=== PATIENT | male | born 1970 | race Caucasian/White ===

== ENCOUNTER 2022-03-13 18:55 | Observation (INO) | payer OTHER ==
[2022-03-13 21:53] VITALS: BMI 36.6
[2022-03-13] MEDS: NA CHLORIDE 0.9% 1,000 ML IV SCH (22:00)
[2022-03-13] MEDS ORDERED: NA CHLORIDE 0.9% 1,000 ML ONE (22:03)
[2022-03-14 03:52] LABS: Absolute Lymphocytes (CBC) 2.4 K/uL (0.7-4.9); Hematocrit 47.6 % (39.6-49.0); Lymphocytes % 29.4 % (15.3-44.8); MCV 84.7 fL (80-100); MPV 9.4 fL (7.6-11.3); RBC Red Blood Cell Count 5.62 M/uL (4.33-5.43)
[2022-03-14 04:01] LABS: Potassium 3.7 mmol/L (3.5-5.1)
[2022-03-14] MEDS ORDERED: Ringers Lactate 1,000 ML IV ONE (08:13)
[2022-03-14] MEDS ORDERED: CIPROFLOXACIN 400mg IV 400 MG/200 ML BAG IV ONE (08:13)
[2022-03-14] MEDS ORDERED: MIDAZOLAM HCL 2 MG/2 ML INJ ONE (09:10)
[2022-03-14] MEDS ORDERED: LIDOCAINE 1% MPF 5 ML VIAL ONE (09:10)
[2022-03-14] MEDS ORDERED: ROCURONIUM 50 MG/5 ML VIAL IV ONE (09:10)
[2022-03-14] MEDS ORDERED: propofoL 200 MG/20 ML VIAL IV ONE (09:10)
[2022-03-14] MEDS ORDERED: FENTANYL CITR 100 MCG/2 ML ONE ×2 (09:10→09:34)
[2022-03-14] MEDS ORDERED: SUCCINYLCHOLINE 20 MG/ML (10 ML) IV ONE (09:13)
[2022-03-14] MEDS ORDERED: KETOROLAC 30 MG/ML INJ ONE (09:34)
[2022-03-14] MEDS ORDERED: dexAMETHasone 10 MG/ML VIAL ONE (09:34)
[2022-03-14] MEDS ORDERED: NEOSTIGMINE 1 MG/ML -10 ML VIAL ONE (09:35)
[2022-03-14] MEDS ORDERED: GLYCOPYRROLATE 0.2 MG/ML SYR ONE (09:35)
[2022-03-14] MEDS ORDERED: ONDANSETRON 4 MG/2 ML VIAL ONE (09:40)
--- NOTE | 2022-03-14 09:40 | HP ---
Date of Admission: 03/13/2022 Reason For Service: Lower abdominal pain, appendicitis. History Of Present Illness: This is the case of a male, who comes to the hospital overnight, danial [place] from [place] ER with diagnosis of appendicitis. The patient's story is he was having left hip pain and lower abdominal pain. He thought it was his hip. His orthopedic doctor does not to hips an ymore. He normally takes injection for his knees and his shoulder, so he went to the ER trying to se e if they can do that for him. During the process since the lower abdominal pain, they did a CAT sca n of the abdomen and pelvis showing finding of appendicitis without perforation. He has lower abdomi nal pain. We have been working on him for the last several weeks. At the beginning, he thought he m ight have a hernia, but the CAT scan did not show that, but at this moment, there is some appendiceal mucosal thickening even though he did not have any symptoms of appendicitis at that moment. I advis ed him even though he comes to us for hernia that he may need a diagnostic laparoscopy and he needs t o do his colonoscopies that he has not done yet and if he does not do diagnostic labs, at least he heard s to let us repeat that CT scan, so he took advantage of this and even though he was booked for [facility] er CT scan than he had one visit from yesterday when he had a CAT scan done, once again confirmed the re are some appendiceal changes. He has no WBC count, but it was significant enough to at least I apryl quinonez receive a call from the ER for transfer and appendectomy. His symptoms have been like that of ac he for the last 12 weeks, lower abdominal pain of unknown origin. There is no dysuria, hematuria, he matochezia, melena. There is no recent traveling out of the country. There is no family member sick at home. There is no change in bowel habits. There is no vomiting. Past Medical History: Includes shoulder pain and knee pain, medical history of hypertension. PCP is Kayden Vernon. Allergies: NONE. Social History: He does not smoke, he does not drink alcohol. Family History: Noncontributory. Review of Systems: See H and P. Ten points otherwise unremarkable. Physical Examination: HEENT: Pupils are reactive. Anicteric. Neck: Supple. Chest: Clear. Abdomen: Lower abdominal pain is generalized. It is right and left. No rebound tenderness. No per itonitis at this moment. The ER since I talked to them previously described also periumbilical pain, although it is slightly better today. Laboratory Data: A blood work of [place] [facility] was reviewed showing sodium 141, chloride is 105, gluco se 92. White blood cell count was normal. He had an x-ray of the left hip shows just mild left hip degeneration. He has a CAT scan of the abdomen and pelvis that was described as status post partial gastrectomy, gastric sleeve. The rest of the findings are consistent with appendicitis with dilated appendix. Assessment: He is a -bdpx-ofy patient with lower abdominal pain and also hip pain. When akilah hayes came to the ER in [place], he has periumbilical pain going to the lower abdomen. They did a CAT s can shows appendicitis and we have once again a previous CT scan showing several weeks ago some thick ening of the appendix, although at that moment there is no acute appendicitis, but he was offered a d iagnostic lap. He was going to repeat the CAT scan once again in the next few days, but he decided t o go to the ER for a hip problem. They will need a CAT scan once again they found abnormalities in t he appendix, they believe it could be acute appendicitis and a transfer was requested for surgical in [facility]. I discussed to the patient the options of diagnostic laparoscopy. He has not had any co lonoscopy done yet. He must have that in the near future since he has already passed 48 years old. At this moment, he still has some tenderness in the lower abdomen, although he does have peritonitis. A CAT scan shows acute appendicitis. So, he has the option of diagnostic laparoscopic possible ope n appendectomy with benefits, alternatives, and risks, including, but not limited to infection, bleed ing, damage to adjacent structures, anesthesia complication, negative appendix, CA, and even . He understands this may not relieve any symptoms. He might need more than one surgical intervention. He understood and he wants to have this done during this admission. This will not effect his pain and this will not moss bstitute his colonoscopy. BRYCE/MAIDA Voice ID: [id number]
[2022-03-14] MEDS ORDERED: EPHEDRINE SULF 50 MG/ML VIAL ONE (09:57)
--- NOTE | 2022-03-14 10:15 | P.BOP ---
Preoperative diagnosis: acute appendicitis Postoperative diagnosis: same Primary procedure: Laparoscopic appendectomy Typewriter Aligner: LORENE HERNÁNDEZ (MANAGER CONTENT) Estimated blood loss: <10cc Specimen: ephraim Findings: inflammed appendix Anesthesia: General Complications: None Transferred to: Recovery Room Condition: Good
[2022-03-14] MEDS ORDERED: HYDROCODONE/APAP 5/325 MG TAB PO PRN (10:21)
[2022-03-14] MEDS ORDERED: MORPHINE 2 MG/ML SYR IV PRN (10:21)
[2022-03-14] MEDS: HYDROMORPHONE HCL 1 MG/ML INJ ONE ×2 (10:35→10:40)
[2022-03-14] MEDS ORDERED: PROMETHAZINE INJ 25 MG/ML AMP ONE (10:48)
[2022-03-14] MEDS ORDERED: HYDROMORPHONE HCL 1 MG/ML INJ ONE (10:53)
--- NOTE | 2022-03-14 12:18 | OP ---
Date of Procedure: 03/14/2022 Surgeon: Kane Luna MD Senior Benefits Manager: Lilly Arrington. Preoperative Diagnoses: Acute appendicitis, abdominal pain. Postoperative Diagnoses: Acute appendicitis, abdominal pain. Procedure: Laparoscopic appendectomy. Estimated Blood Loss: Less than 10 mL. Specimens: Appendix. Finding: Inflamed, asymmetrical in shape and color appendix. Anesthesia: General plus local. Complications: None. Indication: This is the case of a 52-year-old patient, who comes to us with abdominal pain, diagnose d on imaging also with acute appendicitis. The benefits, alternatives, and risks of a laparoscopic p ossible open appendectomy fully explained, which include, but not limited to infection, bleeding, dam age to adjacent structures, anesthesia complication, SC, and even . He also understands this ma y not relieve any symptoms. He might need more than one surgical intervention. He understood, jacqueline d a consent. Procedure In Detail: The patient was brought to the operating room, placed in supine position. Anes thesia was done without complication. Abdominal area was prepped and draped in the usual sterile fas hion. Marcaine 0.5% was injected for local anesthetic followed by sharp incision of the skin in the infraumbilical region. Incision was carried down to fascia, which was opened under direct vision. P eritoneum was encountered, opened under direct vision. Vicryl #1 placed inside the fascia. Sukhwinder t rocar was carefully introduced. Pneumoperitoneum was obtained. After that, I placed 2 more trocars, 5 mm each one of them, 1 in the suprapubic area, another 1 in the left lower quadrant using same christopher hnique under direct visualization. This allowed me to visualize the area of the abdomen and we proce eded with diagnostic laparoscopy. We noticed intraabdominal adhesions from previous surgeries, but a lso we noticed to have an abnormal appendix as described on the CT scan. Even though he has normal W BC count and has no peritonitis, the appendix shows to be asymmetrical in shape and color, large, thi ck, although seems not to be attached to any other structures other than the cecum. The base of the appendix seems to be spared from that, so we created a window in the base of the appendix, transected that with Endo DEBI 45 mm thick and then the mesoappendix with Endo DEBI 45 mm vascular sequentially. Further hemostasis was obtained with the help of hemoclips. The appendix removed from abdominal cav ity using an EndoCatch through the umbilical incision. The area was inspected once again. No bile l eak. No bleeding. The rest of the abdomen shows no inguinal hernias are present, the pelvic with no masses seen. The upper abdomen where the stomach too many adhesions in that area and the pain has never been in that region, so there is not a concern at this moment. The area of the adhes ions removed from the periumbilical region and was also inspected with no bleeding. At that moment, I proceeded to remove the trocars under direct vision. Before that, ascending, transverse, and desce nding colon with no masses seen, at least extraluminal. Liver with no masses seen, at least extralum inal. At that moment, I proceeded to remove the trocars under direct vision. Deflated pneumoperiton eum. Closed the fascia with #1 Vicryl. Irrigated subcutaneous tissue, closed that with 3-0 chromic and the skin in a subcuticular fashion with 3-0 chromic and Steri-Strips on top. Sponge count, instr ument counts correct. The patient tolerated the procedure well. The patient was sent to recovery in stable condition. If this patient tolerates lunch and dinner, we may be able to send him home on p. o. antibiotics. Follow up in my office in 1 week. Call for appointment at [phone]. No heavy lifti ng and keep area dry for 48 hours. BRYCE/MAIDA Voice ID: [id number] Report ID: [id number]
[2022-03-14] MEDS: NA CHLORIDE 0.9% 1,000 ML IV SCH (12:28)
[2022-03-14 12:46] VITALS: O2SAT 95
[2022-03-14] MEDS ORDERED: TAMSULOSIN 0.4 MG SR CAP PO ONE (18:00)
[2022-03-14] MEDS ORDERED: CIPROFLOXACIN 400mg IV 400 MG/200 ML BAG IV SCH (21:00)
[2022-03-14 21:55] VITALS: BP 130/85; TEMP 98
== END 2022-03-14 20:35 | disposition home or self-care (01) ==
LOC: 2ND 20:52 → INTOOBSV 20:52
PROVIDERS: ADMIT Surgery; ATTEND Surgery
PROC: 0DTJ4ZZ Resection of Appendix, Percutaneous Endoscopic Approach (ICD-10-PCS; principal; 2022-03-14 09:45)
DX: K35.80 Unspecified acute appendicitis (principal); M25.552 Pain in left hip; I10 Essential (primary) hypertension; M25.519 Pain in unspecified shoulder; M25.569 Pain in unspecified knee; Z98.84 Bariatric surgery status
CPT/HCPCS: 36415; 80048; 85025; 88304; 94010; G0378; G0379; J0330; J0744; J1100; J1170; J2250; J2405; J2550; J2704; J2710; J3010; J7030; J7120

== ENCOUNTER 2022-06-04 09:17 | Day surgery (SDC) | payer OTHER ==
[2022-06-04] MEDS ORDERED: Ringers Lactate 1,000 ML IV ONE (09:34)
[2022-06-04] MEDS ORDERED: propofoL 200 MG/20 ML VIAL IV ONE (11:06)
[2022-06-04] MEDS ORDERED: LIDOCAINE 1% MPF 5 ML VIAL ONE (11:06)
--- NOTE | 2022-06-04 12:41 | ENDO RPT ---
[address], [address] COLONOSCOPY PROCEDURE REPORT EXAM DATE: 06/04/2022 PATIENT NAME: Wilmer Ashley MR #: [id number] BIRTHDATE: 1970 ATTENDING: Kane Luna MD STATUS: outpatient CARE ASSOCIATE: Kita Dale RN and Rand Henley INDICATIONS: The patient is a 52 yr old Male here for a colonoscopy due to colon cancer screening PROCEDURE PERFORMED: Colonoscopy with biopsy - cold polypectomy MEDICATIONS: Per Anesthesia. ESTIMATED BLOOD LOSS: None CONSENT: The patient understands the risks and benefits of the procedure and understands that these risks include, but are not limited to: sedation, allergic reaction, infection, perforation and/or bleeding. Alternative means of evaluation and treatment include, among others: physical exam, x-rays, and/or surgical intervention. The patient elects to proceed with this endoscopic procedure. DESCRIPTION OF PROCEDURE: During intra-op preparation period all mechanical medical equipment was checked for proper function. Hand hygiene and appropriate measures for infection prevention was taken. Procedure, possible complications, alternatives including, but not limited to possibility of bleeding, perforation, tear, infection, sepsis, need for surgery, need for blood transfusion, were explained to the patient. After the risks, benefits and alternatives of the procedure were thoroughly explained, Informed consent was verified, confirmed and timeout was successfully executed by the treatment team. The patient was placed in the left lateral position. A digital rectal exam was performed and revealed hemorrhoids. After appropriate level of anesthesia, the scope was passed. The EC-[id number] ([id number]) endoscope was introduced through the anus and advanced to the cecum, which was identified by the ileocecal valve. The quality of the prep was good. The instrument was then slowly withdrawn as the colon was fully examined. Scope withdrawal time was . COLON FINDINGS: Moderate sized internal and external hemorrhoids were found. Diverticula was found throughout the entire examined colon. The opening was small. Two sessile polyps were found at approximately 18cm and 25cm from anal verge less than 0.3cm in size.. Retroflexed views revealed no abnormalities. The scope was then completely withdrawn from the patient and the procedure terminated. ADVERSE EVENTS: There were no complications. IMPRESSIONS: 1. Moderate sized internal and external hemorrhoids 2. Diverticula throughout the entire examined colon 3. Two sessile polyps were found; polypectomy was performed in a piecemeal fashion using hot forceps RECOMMENDATIONS: 1. await biopsy results 2. follow-up: office 1 week(s) 3. hemorrhoidal hygiene 4. no seeds in diet RECALL: for Colonoscopy, pending biopsy results. Kane Luna MD eSigned: Kane Luna MD 06/04/2022 12:40 PM cc: Vimal Vernon M.D. CPT CODES: ICD9 CODES: PATIENT NAME: Wilmer Ashley MR#: [id number]
[2022-06-04 13:30] VITALS: BP 135/76; TEMP 97; O2SAT 99
== END 2022-06-04 13:06 | disposition home or self-care (01) ==
LOC: OR 09:17
PROVIDERS: ATTEND Surgery
PROC: 0DBN8ZX Excision of Sigmoid Colon, Via Natural or Artificial Opening Endoscopic, Diagnostic (ICD-10-PCS; principal; 2022-06-04 11:30)
DX: Z12.11 Encounter for screening for malignant neoplasm of colon (principal); I10 Essential (primary) hypertension; E66.9 Obesity, unspecified; D12.5 Benign neoplasm of sigmoid colon; K57.30 Diverticulosis of large intestine without perforation or abscess without bleeding; K64.4 Residual hemorrhoidal skin tags; K64.8 Other hemorrhoids
CPT/HCPCS: 88305; 45384; J2704; J2001; J7120

== ENCOUNTER 2024-03-20 12:33 | Emergency (ER) | payer OTHER ==
--- NOTE | 2024-03-20 13:48 | RAD REPORT ---
EXAM DESCRIPTION: RAD - Chest Pa And Lat (2 Views) - 03/20/2024 1:42 pm CLINICAL HISTORY: swallowed bridge Chest pain. COMPARISON: Chest Pa And Lat (2 Views) dated 03/12/2023; Chest Pa And Lat (2 Views) dated 08/07/2021 TECHNIQUE: PA and lateral views of the chest were obtained. FINDINGS: The lungs are hyperexpanded compatible with COPD. The heart is upper limit of normal in si ze. No fracture or aggressive bony process. No radiopaque foreign body. IMPRESSION: COPD without acute process identified. The USPSTF recommends annual screening for lung cancer with low-dose CT (LDCT) in adults aged 50 to 8 0 years who have a 20 pack-year smoking history and currently smoke or have quit within the past 15 y ears.
--- NOTE | 2024-03-20 13:49 | RAD REPORT ---
EXAM DESCRIPTION: RAD - Abdomen W Erect - 03/20/2024 1:42 pm CLINICAL HISTORY: swallowed foreign body Pain COMPARISON: No comparisons FINDINGS: The bowel gas pattern is non-obstructive. No evidence of free air or pneumatosis. No suspi cious calcifications. No significant bony findings. Probable radiopaque foreign body in the stomach. IMPRESSION: Probable radiopaque foreign body in the stomach.
--- NOTE | 2024-03-20 14:04 | ER ---
Nurse's Notes [facility] Name: Wilmer Ashley Age: 54 yrs Sex: Male : 1970 Arrival Date: 03/20/2024 Time: 12:33 Bed 17 Private MD: Diagnosis: Foreign body in stomach Presentation: 03/20 12:40 Chief complaint: Patient states: PATIENT STATES SWALLOWED DENTAL BRIDGE WHILE EATING A db PIECE OF CANDY. STATES FEELS LODGED IN ESOPHAGUS. Coronavirus screen: Client denies travel out of the [place] in the last 14 days. At this time, the client does not indicate any symptoms associated with coronavirus-19. Ebola Screen: Patient negative for fever greater than or equal to 101.5 degrees Fahrenheit, and additional compatible Ebola Virus Disease symptoms Patient denies exposure to infectious person. Patient denies travel to an Ebola-affected area in the 21 days before illness onset. No symptoms or risks identified at this time. Initial Sepsis Screen: Does the patient meet any 2 criteria? No. Patient's initial sepsis screen is negative. Does the patient have a suspected source of infection? No. Patient's initial sepsis screen is negative. Risk Assessment: Do you want to hurt yourself or someone else? Patient reports no desire to harm self or others. Onset of symptoms was March 20, 2024 at 12:00. 12:40 Method Of Arrival: Ambulatory db 12:40 Acuity: CRISTINE 3 db Triage Assessment: 12:43 General: Appears in no apparent distress. comfortable, Behavior is calm, cooperative. db Pain: Complains of pain in chest and neck. Neuro: Level of Consciousness is awake, alert, obeys commands, Oriented to person, place, time, situation. Respiratory: Airway is patent Respiratory effort is even, unlabored, Respiratory pattern is regular, symmetrical. Historical: - Allergies: 12:43 No Known Allergies; db - PMHx: 12:43 Hypertensive disorder; db - PSHx: 12:43 gastric sleeve; db - Immunization history:: Adult Immunizations unknown. - Infectious Disease History:: Denies. - Social history:: Smoking status: Patient denies any tobacco usage or history of. Screenin:[facility] ED Fall Risk Assessment (Adult) History of falling in the last 3 months, tm6 including since admission No falls in past 3 months (0 pts) Confusion or Disorientation No (0 pts) Intoxicated or Sedated No (0 pts) Impaired Gait No (0 pts) Mobility Assist Device Used No (0 pt) Altered Elimination No (0 pt) Score/Fall Risk Level 0 - 2 = Low Risk Oriented to surroundings, Maintained a safe environment, Educated pt \T\ family on fall prevention, incl call for assistance when getting out of bed. Abuse screen: Denies threats or abuse. Denies injuries from another. Nutritional screening: No deficits noted. Tuberculosis screening: No symptoms or risk factors identified. Assessment: 12:53 General: Appears in no apparent distress. uncomfortable, Behavior is calm, cooperative. tm6 Pain: Complains of pain in mid-sternal area Pain does not radiate. Quality of pain is described as aching, Pain began 30 min ago. Neuro: Level of Consciousness is awake, alert, obeys commands, Oriented to person, place, time, situation. Cardiovascular: Patient's skin is warm and dry. Respiratory: Reports shortness of breath at rest Airway is patent Respiratory effort is even, unlabored, Respiratory pattern is regular, symmetrical. GI: Abdomen is round non-distended. : No signs and/or symptoms were reported regarding the genitourinary system. EENT: No signs and/or symptoms were reported regarding the EENT system. Derm: No signs and/or symptoms reported regarding the dermatologic system. Musculoskeletal: No signs and/or symptoms reported regarding the musculoskeletal system. 14:00 Reassessment: Patient and/or family updated on plan of care and expected duration. Pain rs5 level reassessed. Patient is alert, oriented x 3, equal unlabored respirations, skin warm/dry/pink. Vital Signs: 12:40 BP 154 / 102; Pulse 74; Resp 16; Temp 98.3; Pulse Ox 97% on R/A; Weight 130.36 kg; db Height 6 ft. 1 in. ; 13:55 BP 145 / 81; Pulse 70; Resp 17; Pulse Ox 99% on R/A; rs5 12:40 Body Mass Index 37.92 (130.36 kg, 185.42 cm) db ED Course: 12:34 Patient arrived in ED. im 12:38 Parish Webb DO is Attending Physician. ms3 12:43 Triage completed. db 12:43 Arm band placed on Patient placed in an exam room. db 12:53 Mally Nixon, RN is Primary Nurse. tm6 12:53 Patient has correct armband on for positive identification. Placed in gown. Bed in low tm6 position. Call light in reach. Provided Education on: use of call palomo. Client placed on continuous cardiac and pulse oximetry monitoring. NIBP monitoring applied. Pulse ox on. NIBP on. 13:44 Chest Pa And Lat (2 Views) XRAY In Process Unspecified. EDMS 13:44 Abdomen W Erect In Process Unspecified. EDMS 14:14 No provider procedures requiring assistance completed. Patient did not have IV access rs5 during this emergency room visit. Administered Medications: No medications were administered Medication: 12:53 VIS not applicable for this client. tm6 Outcome: 14:04 Discharge ordered by . ms3 14:14 Discharged to home ambulatory, with family, rs5 14:14 Condition: stable 14:14 Discharge instructions given to patient, family, Instructed on discharge instructions, follow up and referral plans. Demonstrated understanding of instructions, follow-up care, 14:14 Patient left the ED. rs5 Signatures: Dispatcher [employer] EDMS Parish Webb DO DO ms3 Betty Hadley, RN RN db Ross Del Rosario, RN RN rs5 Rosa Isela Horan Tawney, RN RN tm6
--- NOTE | 2024-03-20 14:04 | EDPHYS ---
Physician Documentation [facility] Name: Wilmer Ashley Age: 54 yrs Sex: Male : 1970 Arrival Date: 03/20/2024 Time: 12:33 Bed 17 Private MD: ED Physician Parish Webb HPI: 03/20 20:59 This 54 yrs old Male presents to ER via Ambulatory with complaints of Foreign Body In ms3 Throat - tooth bridge. 20:59 54-year-old male with past medical history of hypertension presents to the emergency ms3 department after swallowing for tooth bridge. Patient states he was eating a caramel candy that stuck to his bridge and he swallowed the bridge. He notes he does have some substernal discomfort.. Historical: - Allergies: 12:43 No Known Allergies; db - PMHx: 12:43 Hypertensive disorder; db - PSHx: 12:43 gastric sleeve; db - Immunization history:: Adult Immunizations unknown. - Infectious Disease History:: Denies. - Social history:: Smoking status: Patient denies any tobacco usage or history of. ROS: 20:59 Constitutional: Negative for fever, and chills. Cardiovascular: Negative for chest ms3 pain, and palpitations. Respiratory: Negative for shortness of breath, cough, wheezing, and pleuritic chest pain, 20:59 Skin: Negative for injury, rash, and discoloration, Neuro: Negative for headache, weakness, numbness, tingling. 20:59 Abdomen/GI: Positive for abdominal pain, Exam: 20:59 Constitutional: This is a well developed, well nourished patient who is awake, alert, ms3 and in no acute distress. Cardiovascular: Regular rate and rhythm with a normal S1 and S2. No gallops, murmurs, or rubs. Normal PMI, no JVD. No pulse deficits. Respiratory: Lungs have equal breath sounds bilaterally, clear to auscultation and percussion. No rales, rhonchi or wheezes noted. No increased work of breathing, no retractions or nasal flaring. Abdomen/GI: Soft, non-tender, with normal bowel sounds. No distension or tympany. No guarding or rebound. No evidence of tenderness throughout. Skin: Warm, dry with normal turgor. Normal color with no rashes, no lesions, and no evidence of cellulitis. MS/ Extremity: Pulses equal, no cyanosis. Neurovascular intact. Full, normal range of motion. Vital Signs: 12:40 BP 154 / 102; Pulse 74; Resp 16; Temp 98.3; Pulse Ox 97% on R/A; Weight 130.36 kg; db Height 6 ft. 1 in. ; 13:55 BP 145 / 81; Pulse 70; Resp 17; Pulse Ox 99% on R/A; rs5 12:40 Body Mass Index 37.92 (130.36 kg, 185.42 cm) db MDM: 13:08 Patient medically screened. ms3 20:59 Data reviewed: vital signs, radiologic studies, and as a result, I will discharge ms3 patient. Independent interpretation of the following test(s) in the Emergency Department X-Ray: My interpretation is Abdominal x-ray images reviewed by me showed dental bridge in the stomach. Counseling: I had a detailed discussion with the patient and/or guardian regarding the historical points, exam findings, and any diagnostic results supporting the discharge/admit diagnosis, radiology results, the need for outpatient follow up, to return to the emergency department if symptoms worsen or persist or if there are any questions or concerns that arise at home. Special discussion: I discussed with the patient/guardian in detail that at this point there is no indication for admission to the hospital. It is understood, however, that if the symptoms persist or worsen the patient needs to return immediately for re-evaluation. ED course: Discussed x-ray findings and showed patient image of bridge and stomach. On reevaluation patient is alert and oriented x 4, no apparent distress, nontoxic-appearing, speaking full sentences, ambulatory in the emergency department. Discussed with patient necessity to follow-up with his primary care physician on Saturday for repeat imaging to ensure bridge has passed. He understands and agrees with plan. Return precautions discussed include fevers, abdominal pain, worsening symptoms, or any other concerns.. 03/20 13:07 Order name: Chest Pa And Lat (2 Views) XRAY; Complete Time: 13:51 ms3 03/20 13:37 Order name: Abdomen W Erect; Complete Time: 13:51 EDMS Administered Medications: No medications were administered Disposition Summary: 03/20/24 14:04 Discharge Ordered Notes: Location: Home ms3 Condition: Stable ms3 Diagnosis - Foreign body in stomach ms3 Followup: ms3 - With: Private Physician - When: 2 - 3 days - Reason: Recheck today's complaints Discharge Instructions: - Discharge Summary Sheet ms3 - Swallowed Foreign Body, Adult ms3 Forms: - Medication Reconciliation Form ms3 - Antibiotic Education ms3 - Prescription Opioid Use ms3 - Patient Portal Instructions ms3 - Leadership Thank You Letter ms3 Signatures: Dispatcher [employer] EDMS Parish Webb DO DO ms3 Betty Hadley RN RN db Corrections: (The following items were deleted from the chart) 13:37 13:08 Abdomen Acute Series+RAD.RAD.BRZ ordered. EDMS EDMS
[2024-03-20 14:19] VITALS: TEMP 98.3
[2024-03-20 14:20] VITALS: BP 145/81; O2SAT 99
== END 2024-03-20 14:14 | disposition home or self-care (01) ==
LOC: ER 12:33
DX: T18.2XXA Foreign body in stomach, initial encounter (principal)
CPT/HCPCS: 71046; 74019; 99283